=== PATIENT | male | born 1975 | race Two or more races ===

== ENCOUNTER 2023-12-18 11:50 | Emergency (ER) | payer OTHER ==
[~2023-12-18] VITALS: Ht 180.3 cm; Wt 99.8 kg
[2023-12-18] MEDS ORDERED: ENALAPRILAT DIHYDRATE 1.25 MG/ML VIAL IV ONE (12:20)
[2023-12-18] MEDS ORDERED: KETOROLAC TROMETHAMINE 60 MG VIAL IM STA (13:02)
[2023-12-18] MEDS ORDERED: KETOROLAC TROMETHAMINE 60 MG VIAL IM ONE (13:13)
[2023-12-18 13:49] LABS: HEMATOCRIT 41.2 % (39.0-48.0); MEAN CELL VOLUME 86.4 fL (80.0-100.00); MEAN CORPUSCULAR HEMOGLOBIN 29.3 pg (27.00-32.0); MEAN CORPUSCULAR HGB CONC 33.9 g/dl (32.0-36.0); PLATELET COUNT 234 K/uL (150-450); RED BLOOD COUNT 4.77 M/uL (4.00-6.00); RED CELL DISTRIBUTION WIDTH 14.8 % (11.5-14.5)
[2023-12-18 14:00] LABS: PH,URINE 5.5 (5.0-8.0); URINE APPEARANCE Cloudy; URINE BILIRRUBIN Negative (NEGATIVE); URINE BLOOD Negative; URINE COLOR Yellow; URINE KETONE Negative (NEGATIVE); URINE LEUKOCYTE Moderate; URINE NITRATE Negative; URINE PROTEIN Negative (NEGATIVE)
[2023-12-18 14:01] LABS: URINE BACTERIA 162.4 uL (0.0-1933); URINE EPITHELIAL CELLS 32.7 uL (0.0-38.8); URINE RBC 2.7 uL (0.0-20.8); URINE WBC 503.8 uL (0.0-23.2)
[2023-12-18 14:05] LABS: CALCIUM 9.2 mg/dL (8.5-10.1); CREATININE SERUM 0.99 mg/dL (0.70-1.30); GFR 80.68; POTASSIUM 4.17 mEq/L (3.5-5.1)
[2023-12-18 14:08] LABS: URINE CAST 0.15 uL (0.0-1.40); URINE GLUCOSE >=1000 MG/DL (NEGATIVE)
== END 2023-12-18 15:28 | disposition home or self-care (01) ==
LOC: ER 11:52
PROVIDERS: General Practice
DX: M94.0 Chondrocostal junction syndrome [Tietze] (principal); R07.89 Other chest pain; E11.9 Type 2 diabetes mellitus without complications; I10 Essential (primary) hypertension

== ENCOUNTER 2023-12-20 07:42 | Emergency (ER) | payer OTHER ==
[~2023-12-20] VITALS: Ht 182.9 cm; Wt 108.9 kg
[2023-12-20] MEDS ORDERED: ASPIRIN 325 MG TABLET.EC PO STA (08:18)
[2023-12-20 08:56] LABS: HEMATOCRIT 40.4 % (39.0-48.0); HEMOGLOBIN 14.3 g/dL (13-16.00); MEAN CELL VOLUME 85.1 fL (80.0-100.00); MEAN CORPUSCULAR HEMOGLOBIN 30.2 pg (27.00-32.0); MEAN CORPUSCULAR HGB CONC 35.5 g/dl (32.0-36.0); PLATELET COUNT 228 K/uL (150-450); RED BLOOD COUNT 4.74 M/uL (4.00-6.00); RED CELL DISTRIBUTION WIDTH 14.8 % (11.5-14.5)
[2023-12-20] MEDS ORDERED: INSULIN REGULAR, HUMAN 1,000 UNIT/10 ML UNITS SUBCUTANEO ONE (09:00)
[2023-12-20 09:26] LABS: CREATININE SERUM 0.95 mg/dL (0.70-1.30); GFR 84.62; INR 0.94; PARTIAL THROMBOPLASTIN TIME 31.5 SECONDS (22.0-34.0); POTASSIUM 3.77 mEq/L (3.5-5.1); PROTHROMBIN TIME 10.3 SECONDS (9.0-11.5)
== END 2023-12-20 14:36 | disposition home or self-care (01) ==
LOC: ER 07:43
PROVIDERS: Emergency Medicine
DX: M94.0 Chondrocostal junction syndrome [Tietze] (principal); R06.02 Shortness of breath; R07.9 Chest pain, unspecified; I10 Essential (primary) hypertension; E11.9 Type 2 diabetes mellitus without complications